=== PATIENT | female | born 1990 | race American Indian/Alaskan Native ===

== ENCOUNTER 2016-11-14 21:58 | Emergency (ER) | payer SELFPAY ==
[2016-11-15 03:24] VITALS: BP 194/107
--- NOTE | 2016-11-15 03:44 | Emergency Department Report ---
ED ENT HPI - General Chief complaint: Earache Stated complaint: RT EAR PAIN Time Seen by Provider: 11/15/16 02:28 Source: patient Mode of arrival: Ambulatory Limitations: No Limitations - History of Present Illness Initial comments: pt is a 26 y/o aaf with hx of htn and recurrent AOM, who presents for right ear pain and fever x 1 week pt denies dizziness no lightheadedness no cp no sob , no vertigo pat adviess that he as not attempted otc pain medMD rodger complaint: ear pain Onset/Timin -: week(s) Location: R ear Severity: moderate Severity scale (0 -10): 4 Quality: sharp Consistency: intermittent Improves with: none Worsens with: movement - Related Data Previous Rx's Medication Instructions Recorded Last Taken Type Amoxicillin/K Clav Tab [Augmentin 1 tab PO Q12HR #20 tab 11/15/16 Unknown Rx 875 mg] Hydrochlorothiazide [Hctz] 12.5 mg PO QDAY #30 capsule 11/15/16 Unknown Rx Ibuprofen [Motrin 800 MG tab] 800 mg PO Q8HR PRN #30 tablet 11/15/16 Unknown Rx Allergies Allergy/AdvReac Type Severity Reaction Status Date / Time No Known Allergies Allergy Verified 11/14/16 22:13 ED Dental HPI - General Chief complaint: Earache Stated complaint: RT EAR PAIN Time Seen by Provider: 11/15/16 02:28 Source: patient Mode of arrival: Ambulatory Limitations: No Limitations - Related Data Previous Rx's Medication Instructions Recorded Last Taken Type Amoxicillin/K Clav Tab [Augmentin 1 tab PO Q12HR #20 tab 11/15/16 Unknown Rx 875 mg] Hydrochlorothiazide [Hctz] 12.5 mg PO QDAY #30 capsule 11/15/16 Unknown Rx Ibuprofen [Motrin 800 MG tab] 800 mg PO Q8HR PRN #30 tablet 11/15/16 Unknown Rx Allergies Allergy/AdvReac Type Severity Reaction Status Date / Time No Known Allergies Allergy Verified 11/14/16 22:13 ED Review of Systems ROS: Stated complaint: RT EAR PAIN Other details as noted in HPI Constitutional: denies: chills, fever Eyes: denies: eye pain, eye discharge, vision change ENT: congestion Respiratory: cough. denies: shortness of breath, wheezing Cardiovascular: denies: chest pain, palpitations Endocrine: no symptoms reported Gastrointestinal: denies: abdominal pain, nausea, diarrhea Genitourinary: denies: urgency, dysuria, discharge Musculoskeletal: denies: back pain, joint swelling, arthralgia Skin: denies: rash, lesions Neurological: denies: headache, weakness, paresthesias Psychiatric: denies: anxiety, depression Hematological/Lymphatic: as per HPI ED Past Medical Hx - Past Medical History Previous Medical History?: Yes Hx Hypertension: Yes - Surgical History Past Surgical History?: Yes Hx Cholecystectomy: Yes - Social History Smoking Status: Current Some Day Smoker Substance Use Type: Alcohol - Medications Home Medications: Home Medications Medication Instructions Recorded Confirmed Last Taken Type Amoxicillin/K Clav Tab [Augmentin 1 tab PO Q12HR #20 tab 11/15/16 Unknown Rx 875 mg] Hydrochlorothiazide [Hctz] 12.5 mg PO QDAY #30 capsule 11/15/16 Unknown Rx Ibuprofen [Motrin 800 MG tab] 800 mg PO Q8HR PRN #30 tablet 11/15/16 Unknown Rx ED Physical Exam - General Limitations: No Limitations General appearance: alert, in no apparent distress - Head Head exam: Present: atraumatic, normocephalic - Eye Eye exam: Present: normal appearance - ENT ENT exam: Present: mucous membranes moist - Expanded ENT Exam Expanded TM/Canal exam: Erythema: Right TM, Left TM, Loss of Landmarks: Right TM, Left TM , Foreign Body: Left TM, Cerumen Impaction: Left TM, Mastoid Tenderness: Left TM , Canal Discharge: Left TM, Canal Tenderness: Left TM Mouth exam: Present: normal external inspection. Absent: muffled voice, tongue normal, tongue elevation Teeth exam: Present: normal inspection - Neck Neck exam: Present: normal inspection, full ROM. Absent: tenderness, lymphadenopathy, thyromegaly - Respiratory Respiratory exam: Present: normal lung sounds bilaterally. Absent: respiratory distress, wheezes, rhonchi, stridor - Cardiovascular Cardiovascular Exam: Present: regular rate, normal rhythm, normal heart sounds. Absent: systolic murmur, diastolic murmur, rubs, gallop - GI/Abdominal GI/Abdominal exam: Present: soft - Extremities Exam Extremities exam: Present: normal inspection - Back Exam Back exam: Present: normal inspection - Neurological Exam Neurological exam: Present: alert, oriented X3 - Psychiatric Psychiatric exam: Present: normal affect, normal mood - Skin Skin exam: Present: warm, dry, intact, normal color. Absent: rash ED Course Vital Signs 11/14/16 11/15/16 11/15/16 22:14 02:15 03:23 Temperature 98.5 F 99 F Pulse Rate 78 70 Respiratory 18 70 H 18 Rate Blood Pressure 190/115 Blood Pressure 194/107 [Left] O2 Sat by Pulse 100 Oximetry ED Medical Decision Making - Medical Decision Making pt is a 26 y/o aaf with hx of htn not currently taking medication hctz 12.5 mg po as she is out who present for ear pain x 1 week pt denies fever or chills endorses aching no tinnitis, syptoms are exacebated by movment symptom are relied by nothing, exam: bilt tm erythema with effusion , pain with movement, nose patent turbinate erythema , phayrnx: moderate erythema no exudate no lesion no exudate, uvula midline no stridor lungs clear bilat all lobes no wheezing, plan: tx for AOM, Augment as she gets AOM 3-4 times annually , Ibuprofen prn pain , and refefill HCTZ po , pt will followp up pcp if symptoms not improving pt verbalize agreement and understanding with discharge plan. Critical care attestation.: If time is entered above; I have spent that time in minutes in the direct care of this critically ill patient, excluding procedure time. ED Disposition Clinical Impression: AOM (acute otitis media) Qualifiers: Otitis media type: serous Laterality: bilateral Recurrence: recurrent Qualified Code(s): H65.06 - Acute serous otitis media, recurrent, bilateral Disposition: - TO HOME OR SELFCARE Is pt being admited?: No Does the pt Need Aspirin: No Condition: Good Instructions: Otitis Media (ED) Prescriptions: Amoxicillin/K Clav Tab [Augmentin 875 mg] 1 tab PO Q12HR #20 tab Hydrochlorothiazide [Hctz] 12.5 mg PO QDAY #30 capsule Ibuprofen [Motrin 800 MG tab] 800 mg PO Q8HR PRN #30 tablet PRN Reason: Pain Referrals: PRIMARY CARE,MD [Primary Care Provider] - 3-5 Days Forms: Work/School Release Form(ED) Time of Disposition: 03:59
== END 2016-11-15 04:24 | disposition home or self-care (01) ==
LOC: ED 21:58
DX: H65.06 Acute serous otitis media, recurrent, bilateral (principal); I10 Essential (primary) hypertension; F17.200 Nicotine dependence, unspecified, uncomplicated
CPT/HCPCS: 99282